=== PATIENT | male | born 1980 | race Caucasian/White ===

== ENCOUNTER 2016-09-15 07:43 | Emergency (ER) | payer OTHER ==
[~2016-09-15] VITALS: Ht 177.8 cm; Wt 77.1 kg
[2016-09-15 07:53] VITALS: BP 158/83
--- NOTE | 2016-09-15 07:58 | ED SYNCOPE COMPLAINT ---
History of Present Illness General Chief Complaint: Syncope and Near-Syncope Stated Complaint: SYNCOPE, LAC TO FOREHEAD, S/P FALL Source: patient Exam Limitations: no limitations Vital Signs & Intake/Output Vital Signs & Intake/Output Vital Signs Date Time Temp Pulse Resp B/P B/P Pulse O2 O2 Flow FiO2 Mean Ox Delivery Rate 09/15 0806 Room Air 09/15 0753 98.1 90 18 158/83 98 Room Air Allergies Coded Allergies: No Known Allergies (09/15/16) Reconcile Medications No Known Home Medications Triage Note: PT STATES THAT HE GOT UP TO [facility] IN THE MIDDLE OF THE NIGHT AND BECAME DIZZY AND THINKS HE HAD A SYNCOPLE EPISODE, STATES THAT HE HIT HIS HEAD ON THE NIGHT STAND. NOTED WITH LAC TO THE MIDDLE OF HIS FOREHEAD. Triage Nurses Notes Reviewed? yes HPI: During the night the patient got up to go to the bathroom. Just after urinating he felt lightheaded and fell to the ground. Patient states that this has happened to him a few times in the past. Patient states he has been worked up for it. Patient states that he was able to get up and go to bed. Patient talked to his about it. This morning when they woke up did notice that he had a laceration to his forehead. Patient denies any headache or blurry vision. There is no nausea or vomiting. He wanted to come in to get evaluated for the laceration. Past History Travel History Traveled to [place] past 21 day No Medical History Any Pertinent Medical History? 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 No Review of Systems Review of Systems Constitutional: Reports: no symptoms. EENTM: Reports: no symptoms. Respiratory: Reports: no symptoms. Cardiovascular: Reports: no symptoms. GI: Reports: no symptoms. Genitourinary: Reports: no symptoms. Musculoskeletal: Reports: no symptoms. Skin: Reports: see HPI. Neurological/Psychological: Reports: no symptoms. All Other Systems: Reviewed and Negative Physical Exam Physical Exam General Appearance: well developed/nourished, alert, awake, anxious, mild distress Head: lacerations Eyes: Bilateral: PERRL, EOMI. Ears, Nose, Throat: normal pharynx, normal ENT inspection, hearing grossly normal Neck: normal inspection, supple, full range of motion Respiratory: normal breath sounds, chest non-tender, no respiratory distress, lungs clear Cardiovascular: regular rate/rhythm, normal peripheral pulses Gastrointestinal: normal bowel sounds, soft, non-tender, no organomegaly Back: normal inspection, normal range of motion Extremities: normal inspection, normal capillary refill Psychiatric: awake, alert, oriented x 3 Cranial Nerves: normal hearing, normal speech, PERRL Coordination/Gait: normal gait Motor/Sensory: no motor/sensory deficits Skin: normal color, warm/dry Core Measures ACS in differential dx? No CVA/TIA Diagnosis: No Severe Sepsis Present: No Septic Shock Present: No Progress Differential Diagnosis: orthostatic syncope, sick sinus syndrome, vasodepressor syncope, LACERATION Plan of Care: Orders Procedure Date/time Status EKG 09/16 743 Active Initial ED EKG: NSR, no ST T wave changes Departure Departure Disposition: HOME OR SELF CARE Condition: Stable Clinical Impression Primary Impression: Syncope Qualifiers: Syncope type: unspecified Qualified Code: R55 - Syncope and collapse Secondary Impressions: Laceration of head Qualifiers: Encounter type: initial encounter Location of open wound of head: scalp Foreign body presence: without foreign body Qualified Code: S01.01XA - Laceration without foreign body of scalp, initial encounter Referrals: ALEJANDRA MATAMOROS MD (PCP/Family) Departure Forms: Customer Survey General Discharge Information Prescriptions: Current Visit Scripts No Known Home Medications Procedures Laceration/Wound Repair Laceration/Wound Repair: Wound Location: head Wound's Depth, Shape: irregular, superficial Wound Length (cm): 3 Wound Repaired With: Dermabond
== END 2016-09-15 08:43 ==
LOC: ERH 07:43
DX: S01.81XA Laceration without foreign body of other part of head, initial encounter (principal); S01.01XA Laceration without foreign body of scalp, initial encounter; R55 Syncope and collapse; W19.XXXA Unspecified fall, initial encounter; Y93.89 Activity, other specified; Y92.9 Unspecified place or not applicable
CPT/HCPCS: 90471; 90714; 93005; 93010